=== PATIENT | male | born 1980 | race Caucasian/White ===

== ENCOUNTER 2017-03-17 17:55 | Emergency (ER) | payer OTHER ==
[~2017-03-17] VITALS: Ht 170.2 cm; Wt 104.3 kg
[~2017-03-17 17:55] MED LIST: BACTRIM DS TAB1 EACH PO; FLEXERIL PO; HYDROCODON-ACE1 EAC7 PO; IBUPROFEN 800800 M1 PO; KEFLEX500 M1 PO; NAPROSYN500 MG PO; NORCO 5-325 TA1 EACH PO; PERCOCET
[2017-03-17] MEDS ORDERED: TRAMADOL 50 MG50 MG PO (20:37)
[2017-03-17] MEDS ORDERED: PROCTO-MED HC30 GM RECTAL (20:37)
[2017-03-17] MEDS ORDERED: HEMORRHOIDAL S1 EACH RECTAL (20:37)
[2017-03-17] MEDS ORDERED: TUCKS1 EAC1 TOP (20:38)
[2017-03-17 21:00] VITALS: BP 136/81
== END 2017-03-17 21:00 | disposition home or self-care (01) ==
LOC: M.ERS 17:55
DX: K64.9 Unspecified hemorrhoids (principal); Z98.890 Other specified postprocedural states; Z88.6 Allergy status to analgesic agent; Z88.5 Allergy status to narcotic agent